=== PATIENT | female | born 1985 | race Two or more races ===

== ENCOUNTER 2016-06-09 13:42 | Emergency (ER) | payer SELFPAY ==
[2016-06-09 14:25] LABS: SPECIFIC GRAVITY 1.015 (1.001-1.030); URINE BILIRUBIN NEGATIVE (NEGATIVE); URINE BLOOD 1+ (NEGATIVE); URINE GLUCOSE (UA) NEGATIVE (NEGATIVE); URINE LEUKOCYTE ESTERASE 1+ (NEGATIVE); URINE NITRITE NEGATIVE (NEGATIVE); URINE PROTEIN 1+ (NEGATIVE); URINE UROBILINOGEN NORMAL (0-1 mg/dl)
[2016-06-09 14:26] LABS: URINE APPEARANCE CLOUDY; URINE COLOR LIGHT YELLOW
[2016-06-09 14:29] LABS: HCG,QUALITATIVE URINE NEGATIVE
[2016-06-09 14:47] LABS: URINE BACTERIA 2+
[2016-06-09 14:48] LABS: URINE WBC 20-50 /hpf
[2016-06-09] MEDS ORDERED: PHENAZOPYRIDINE HCL 200 MG TABLET ONE (16:55)
[2016-06-09] MEDS ORDERED: IBUPROFEN 800 MG TABLET ONE (16:55)
[2016-06-09] MEDS ORDERED: CEFTRIAXONE SODIUM 1 G VIAL ONE (16:55)
[2016-06-12 09:02] LABS: CHLAMYDIA BD Negative (Negative); N.GONORRHOEAE BD Negative (Negative); SOURCE Urine (())
== END 2016-06-09 17:13 | disposition home or self-care (01) ==
LOC: ED 13:42
DX: N10 Acute pyelonephritis (principal); B95.7 Other staphylococcus as the cause of diseases classified elsewhere; N89.8 Other specified noninflammatory disorders of vagina; I10 Essential (primary) hypertension; F17.210 Nicotine dependence, cigarettes, uncomplicated
CPT/HCPCS: 87491; 87591; 81025; 87086; 87186; 81001; 87077; 99283 ×2; 96372; A9270 ×2; J0696